=== PATIENT | male | born 1960 | race Caucasian/White ===

== ENCOUNTER 2018-08-18 19:48 | Inpatient (IN) | payer MEDICARE, MEDICAID ==
[~2018-08-18] VITALS: Ht 162.6 cm; Wt 85.0 kg
[~2018-08-18 19:48] MED LIST: ALEN70TA13 PO; AMLO10TA13 PO; ASPI81TA46 PO; ATOR10TA70 PO; BACL10TA2 PO; FLUT16SP26 INH; GLIM1TAB46 PO; HYDR12.5 PO; LEVO500T2 PO; LISI40TA4 PO; LORA10TA7 PO; METF-950 PO; PARO40TA4 PO; TAMS0.4C32 PO
[2018-08-18] MEDS ORDERED: normal saline 1000ml 1,000 ML IV ONE (20:31)
[2018-08-18] MEDS ORDERED: temazepam 15mg capsule PO PRN (21:00)
[2018-08-18 21:03] LABS: BASOPHILS % (AUTO) 0.2 % (0-1); EOSINOPHILS % (AUTO) 0 % (0-6); HEMATOCRIT 51.5 % (42.0-52.0); HEMOGLOBIN 17.2 g/dl (14.0-17.9); LYMPHOCYTES # (AUTO) 1.1 X10'3 (1.1-4.8); LYMPHOCYTES % (AUTO) 10.2 % (21-51); MEAN CORPUSCULAR HEMOGLOBIN 30.2 PG (27.0-31.0); MEAN CORPUSCULAR HGB CONC 33.3 % (33.0-36.5); MEAN CORPUSCULAR VOLUME 90.6 FL (78-98); MEAN PLATELET VOLUME 8.9 FL (7.4-10.4); MONOCYTES # (AUTO) 0.9 X10'3 (0-0.9); MONOCYTES % (AUTO) 8.1 % (2-12); NEUTROPHILS # (AUTO) 8.6 X10'3 (1.8-7.7); NEUTROPHILS % (AUTO) 81.5 % (42-75); PLATELET COUNT 301 X10'3 (140-440); RED BLOOD COUNT 5.68 X10'6 (4.70-6.10); RED CELL DISTRIBUTION WIDTH 14.2 % (11.5-14.5); WHITE BLOOD COUNT 10.6 X10'3 (4.5-11.0)
[2018-08-18 21:13] LABS: ALANINE AMINOTRANSFERASE 30 U/L (12-78); ALBUMIN 3.8 G/DL (3.4-5.0); ALBUMIN/GLOBULIN RATIO 0.8 (1.1-1.5); ALKALINE PHOSPHATASE 133 IU/L (46-116); ANION GAP 18 (8-16); ASPARTATE AMINO TRANSFERASE 36 U/L (10-37); BILIRUBIN,TOTAL 0.5 MG/DL (0.1-1.0); BLOOD UREA NITROGEN 66 MG/DL (7-18); BUN/CREATININE RATIO 29.5 (5.4-32.0); CALCIUM 8.6 MG/DL (8.5-10.1); CHLORIDE 99 MMOL/L (99-107); CREATININE 2.24 MG/DL (0.60-1.10); GLUCOSE 159 MG/DL (70-104); LIPASE 136 U/L (73-393); MAGNESIUM 1.9 MG/DL (1.5-2.4); POTASSIUM 3.6 MMOL/L (3.5-5.1); SODIUM 137 MMOL/L (135-145); TOTAL PROTEIN 8.7 G/DL (6.4-8.2); eGFR 30 ML/MIN
[2018-08-18 21:37] LABS: INR 1.2 INR; PROTHROMBIN TIME 12.7 SECONDS (9.0-12.0)
[2018-08-18 21:48] LABS: GLUCOSE, URINE NEGATIVE (Neg); KETONES,URINE TRACE mg/dl (Neg); LEUKOCYTE ESTERASE ,URINE NEGATIVE (Neg); NITRITES, URINE NEGATIVE (Neg); OCCULT BLOOD,URINE NEGATIVE (Neg); PROTEIN,URINE 100 mg/dl (Neg); UROBILINOGEN,URINE 0.2 E.U/dL (0.2-1.0)
[2018-08-18] MEDS ORDERED: normal saline 1000ML IV soln IVB ONE (21:50)
[2018-08-18 21:55] LABS: UA COLLECTION TYPE STRAIGHT CATH
[2018-08-18 21:56] LABS: CLARITY,URINE TURBID (Clear)
[2018-08-18 21:57] LABS: COLOR,URINE DARK YELLOW (Yellow)
[2018-08-18 21:58] LABS: BACTERIA,URINE FEW /HPF (Neg); RBC,URINE NONE SEEN /HPF (0-2); WBC,URINE NONE SEEN /HPF (0-4)
[2018-08-18 21:59] LABS: AMORPHOUS URATES 3+; MUCUS STRANDS NONE SEEN /LPF (Neg); SQUAMOUS EPITHELIAL CELL,UR MODERATE /LPF (FEW)
[2018-08-18] MEDS ORDERED: SERT25TA PO (22:24)
[2018-08-18] MEDS ORDERED: FEXO-124 PO (22:24)
[2018-08-18] MEDS ORDERED: CARSR60C PO (22:24)
[2018-08-18] MEDS ORDERED: ACET-2119 PO (22:24)
[2018-08-18] MEDS ORDERED: GEMF600T4 PO (22:24)
[2018-08-18] MEDS ORDERED: ESOM20CA PO (22:24)
[2018-08-18] MEDS ORDERED: SENN-161 PO (22:24)
[2018-08-18] MEDS ORDERED: CARB15DR91 EACH EAR (22:24)
[2018-08-18] MEDS ORDERED: PRAV40TA3 PO (22:24)
[2018-08-18] MEDS ORDERED: LORA1TAB PO (22:24)
[2018-08-18] MEDS ORDERED: glucagon, human recombinant 1mg kit SUBCUT PRN ×2 (22:50→22:55)
[2018-08-18] MEDS ORDERED: dextrose 50%-water 50ml dispensing syringe IV PRN ×4 (22:50→22:55)
[2018-08-18] MEDS ORDERED: dextrose ORAL solution 15 GM/59 ML bottle PO PRN ×4 (22:50→22:55)
[2018-08-18] MEDS ORDERED: MESSAGE TO PHARMACY PO ONE ×2 (22:50→22:55)
[2018-08-18] MEDS ORDERED: insulin Lispro (HumaLOG) vial - multi-dose SQ SCH ×2 (22:50→22:55)
[2018-08-18] MEDS ORDERED: LORazepam 1 MG tablet PO PRN (22:55)
[2018-08-18] MEDS ORDERED: diphenhydrAMINE 25mg capsule PO PRN (22:55)
[2018-08-18] MEDS ORDERED: acetaminophen 650mg rectal suppository RC PRN (22:55)
[2018-08-18] MEDS ORDERED: morphine 2 MG/ML inj. syringe IV PRN ×2 (22:55)
[2018-08-18] MEDS ORDERED: diphenhydrAMINE 50 mg/ml inj IV PRN (22:55)
[2018-08-18] MEDS ORDERED: HYDROcodone/acetaminophen 5mg/325mg tablet PO PRN (22:55)
[2018-08-18] MEDS ORDERED: bisacodyl 10mg suppository rectal RC PRN (22:55)
[2018-08-18] MEDS ORDERED: HYDROcodone/acetaminophen 10/325mg tab PO PRN (22:55)
[2018-08-18] MEDS ORDERED: acetaminophen 325mg tablet PO PRN ×2 (22:55)
[2018-08-18] MEDS ORDERED: mag hydrox/Alum hydrox/simeth 30ml oral suspension PO PRN (22:55)
[2018-08-18] MEDS ORDERED: ondansetron/PF 4mg/2ml inj IV PRN (22:55)
[2018-08-18] MEDS ORDERED: baclofen 10mg tablet PO PRN (22:55)
[2018-08-18] MEDS ORDERED: magnesium hydroxide 30ml (MOM) UD suspension PO PRN (22:55)
[2018-08-18 23:10] LABS: HEMOGLOBIN A1C 5.9 % (4.5-6.2)
[2018-08-18 23:22] LABS: PHOSPHORUS 4.2 MG/DL (2.3-4.5); TROPONIN I < 0.04 NG/ML (0.0-0.05)
[2018-08-18 23:32] LABS: D-DIMER 0.51 MG/L FEU (0-0.50)
[2018-08-18 23:35] VITALS: BP 114/80
[2018-08-19] MEDS: normal saline 1000ml 1,000 ML IV SCH ×3 (05:23→18:54)
[2018-08-19 05:43] LABS: BASOPHILS % (AUTO) 0.1 % (0-1); EOSINOPHILS % (AUTO) 0.7 % (0-6); HEMATOCRIT 40.7 % (42.0-52.0); HEMOGLOBIN 13.9 g/dl (14.0-17.9); LYMPHOCYTES # (AUTO) 1.6 X10'3 (1.1-4.8); LYMPHOCYTES % (AUTO) 22.1 % (21-51); MEAN CORPUSCULAR HEMOGLOBIN 30.6 PG (27.0-31.0); MEAN CORPUSCULAR HGB CONC 34.1 % (33.0-36.5); MEAN CORPUSCULAR VOLUME 89.8 FL (78-98); MEAN PLATELET VOLUME 8.4 FL (7.4-10.4); MONOCYTES # (AUTO) 0.9 X10'3 (0-0.9); NEUTROPHILS # (AUTO) 4.8 X10'3 (1.8-7.7); NEUTROPHILS % (AUTO) 65.1 % (42-75); PLATELET COUNT 213 X10'3 (140-440); RED BLOOD COUNT 4.53 X10'6 (4.70-6.10); RED CELL DISTRIBUTION WIDTH 13.9 % (11.5-14.5); WHITE BLOOD COUNT 7.4 X10'3 (4.5-11.0)
[2018-08-19 06:00] VITALS: BP 121/75
[2018-08-19 06:15] LABS: ALANINE AMINOTRANSFERASE 24 U/L (12-78); ALBUMIN 2.9 G/DL (3.4-5.0); ALBUMIN/GLOBULIN RATIO 0.8 (1.1-1.5); ALKALINE PHOSPHATASE 96 IU/L (46-116); ANION GAP 14 (8-16); ASPARTATE AMINO TRANSFERASE 32 U/L (10-37); BILIRUBIN,TOTAL 0.4 MG/DL (0.1-1.0); BLOOD UREA NITROGEN 51 MG/DL (7-18); BUN/CREATININE RATIO 31.7 (5.4-32.0); CALCIUM 7.2 MG/DL (8.5-10.1); CHLORIDE 108 MMOL/L (99-107); CREATININE 1.61 MG/DL (0.60-1.10); GLUCOSE 119 MG/DL (70-104); POTASSIUM 3.3 MMOL/L (3.5-5.1); SODIUM 142 MMOL/L (135-145); TOTAL CARBON DIOXIDE 20.4 MMOL/L (24-32); TOTAL PROTEIN 6.7 G/DL (6.4-8.2); eGFR 44 ML/MIN
[2018-08-19] MEDS ORDERED: potassium Cl 20 mEq SR tablet PO PRN (06:45)
[2018-08-19] MEDS ORDERED: potassium Cl 40MEQ/NS 500ml 500 ML IV PRN ×2 (07:40)
[2018-08-19] MEDS: loratadine 10mg tablet PO SCH (07:58)
[2018-08-19] MEDS: sertraline 50mg tablet PO SCH (07:59)
[2018-08-19] MEDS: pantoprazole 40mg Tablet.DR PO SCH (07:59)
[2018-08-19] MEDS: gemfibrozil 600mg tablet PO SCH ×2 (08:00→20:23)
[2018-08-19] MEDS: diltiazem 30mg tablet PO SCH ×4 (08:00→21:00)
[2018-08-19] MEDS ORDERED: CefTRIAXone/D5W-Rocephin 1gm 50 ML IV SCH (08:00)
[2018-08-19] MEDS: docusate sod 100mg capsule PO SCH ×2 (08:00→20:00)
[2018-08-19 11:00] VITALS: BP 111/78
[2018-08-19] MEDS: potassium Cl 20 mEq SR tablet PO PRN ×3 (11:10→20:23)
[2018-08-19 15:17] LABS: OCCULT BLOOD STOOL POSITIVE (Neg)
[2018-08-19 15:37] LABS: C DIFF ANTIGEN NEGATIVE (NEGATIVE); C DIFF SPECIMEN=DIARRHEA? ACCEPTABLE; C DIFFICILE TOXINS A&B NEGATIVE (Neg)
[2018-08-19 16:20] VITALS: BP 139/86
[2018-08-19 18:00] VITALS: BP 99/58
[2018-08-19] MEDS ORDERED: pravastatin 40mg tablet PO SCH (21:00)
[2018-08-19 22:00] VITALS: BP 133/83
[2018-08-20 02:00] VITALS: BP 132/82
[2018-08-20] MEDS: normal saline 1000ml 1,000 ML IV SCH ×2 (04:54→14:25)
[2018-08-20 05:30] LABS: BASOPHILS % (AUTO) 0.3 % (0-1); EOSINOPHILS # (AUTO) 0.1 X10'3 (0-0.9); EOSINOPHILS % (AUTO) 1.9 % (0-6); HEMATOCRIT 40.2 % (42.0-52.0); HEMOGLOBIN 13.6 g/dl (14.0-17.9); LYMPHOCYTES # (AUTO) 1.9 X10'3 (1.1-4.8); LYMPHOCYTES % (AUTO) 27.2 % (21-51); MEAN CORPUSCULAR HEMOGLOBIN 30.6 PG (27.0-31.0); MEAN CORPUSCULAR HGB CONC 33.8 % (33.0-36.5); MEAN CORPUSCULAR VOLUME 90.5 FL (78-98); MEAN PLATELET VOLUME 8.9 FL (7.4-10.4); MONOCYTES # (AUTO) 0.7 X10'3 (0-0.9); MONOCYTES % (AUTO) 10.4 % (2-12); NEUTROPHILS # (AUTO) 4.2 X10'3 (1.8-7.7); NEUTROPHILS % (AUTO) 60.2 % (42-75); PLATELET COUNT 213 X10'3 (140-440); RED BLOOD COUNT 4.44 X10'6 (4.70-6.10); RED CELL DISTRIBUTION WIDTH 14.1 % (11.5-14.5)
[2018-08-20 06:00] VITALS: BP 142/87
[2018-08-20 06:09] LABS: ALANINE AMINOTRANSFERASE 23 U/L (12-78); ALBUMIN 3.1 G/DL (3.4-5.0); ALBUMIN/GLOBULIN RATIO 0.8 (1.1-1.5); ALKALINE PHOSPHATASE 97 IU/L (46-116); ANION GAP 9 (8-16); ASPARTATE AMINO TRANSFERASE 32 U/L (10-37); BILIRUBIN,TOTAL 0.4 MG/DL (0.1-1.0); BLOOD UREA NITROGEN 21 MG/DL (7-18); BUN/CREATININE RATIO 19.3 (5.4-32.0); CALCIUM 8.3 MG/DL (8.5-10.1); CHLORIDE 109 MMOL/L (99-107); CREATININE 1.09 MG/DL (0.60-1.10); GLUCOSE 101 MG/DL (70-104); POTASSIUM 3.8 MMOL/L (3.5-5.1); SODIUM 141 MMOL/L (135-145); TOTAL CARBON DIOXIDE 22.7 MMOL/L (24-32); eGFR 69 ML/MIN
[2018-08-20] MEDS: docusate sod 100mg capsule PO SCH (08:00)
[2018-08-20] MEDS: pantoprazole 40mg Tablet.DR PO SCH (08:25)
[2018-08-20] MEDS: loratadine 10mg tablet PO SCH (08:25)
[2018-08-20] MEDS: diltiazem 30mg tablet PO SCH ×2 (08:26→13:00)
[2018-08-20] MEDS: sertraline 50mg tablet PO SCH (08:27)
[2018-08-20] MEDS: gemfibrozil 600mg tablet PO SCH (08:27)
[2018-08-20 11:00] VITALS: BP 143/90
[2018-08-20 15:00] VITALS: BP 147/96
== END 2018-08-20 18:00 | disposition home or self-care (01) | DRG 388 ==
LOC: ER 20:02 → ED HOLD 22:54 → PCU 3S 23:36
PROVIDERS: ADMIT Family Medicine; ATTEND Internal Medicine
PROC: 0D9670Z Drainage of Stomach with Drainage Device, Via Natural or Artificial Opening (ICD-10-PCS; principal; 2018-08-19)
DX: K56.609 Unspecified intestinal obstruction, unspecified as to partial versus complete obstruction (principal); N17.0 Acute kidney failure with tubular necrosis; G80.9 Cerebral palsy, unspecified; E11.9 Type 2 diabetes mellitus without complications; E78.00 Pure hypercholesterolemia, unspecified; E78.5 Hyperlipidemia, unspecified; E86.0 Dehydration; F32.9 Major depressive disorder, single episode, unspecified; N28.1 Cyst of kidney, acquired; F41.9 Anxiety disorder, unspecified; K21.9 Gastro-esophageal reflux disease without esophagitis; M19.90 Unspecified osteoarthritis, unspecified site; E86.1 Hypovolemia; E87.6 Hypokalemia; I10 Essential (primary) hypertension; I48.91 Unspecified atrial fibrillation; N28.89 Other specified disorders of kidney and ureter; Z90.5 Acquired absence of kidney; Z99.3 Dependence on wheelchair; Z79.899 Other long term (current) drug therapy; Z79.82 Long term (current) use of aspirin
CPT/HCPCS: 36415; 71045; 71250; 74176; 74181; 80053; 81001; 82272; 82948; 83036; 83605; 83690; 83735; 83880; 84100; 84443; 84484; 85025; 85379; 85610; 87040; 87045; 87046; 87070; 87324; 87449; 89055; 96360; 99285; J0696; J3480; J7030

== ENCOUNTER 2019-03-09 16:41 | Emergency (ER) | payer MEDICARE, MEDICAID ==
[~2019-03-09] VITALS: Ht 165.1 cm; Wt 70.9 kg
[~2019-03-09 16:41] MED LIST changes: +ACET-2119 PO; -ALEN70TA13 PO; -AMLO10TA13 PO; -ATOR10TA70 PO; +CARB15DR91 EACH EAR; +CARSR60C PO; +ESOM20CA PO; +FEXO-124 PO; -FLUT16SP26 INH; +GEMF600T89 PO; -GLIM1TAB46 PO; -HYDR12.5 PO; -LEVO500T2 PO; -LORA10TA7 PO; +LORA1TAB PO; -METF-950 PO; -PARO40TA4 PO; +PRAV40TA3 PO; +SENN-162 PO; +SERT25TA PO; -TAMS0.4C32 PO
[2019-03-09 17:32] LABS: BASOPHILS % (AUTO) 0.4 % (0-1); EOSINOPHILS # (AUTO) 0.2 X10'3 (0-0.9); EOSINOPHILS % (AUTO) 2.2 % (0-6); HEMATOCRIT 43.1 % (42.0-52.0); HEMOGLOBIN 14.6 g/dl (14.0-17.9); LYMPHOCYTES # (AUTO) 2.1 X10'3 (1.1-4.8); MEAN CORPUSCULAR HEMOGLOBIN 30.4 PG (27.0-31.0); MEAN CORPUSCULAR HGB CONC 33.9 g/dL (33.0-36.5); MEAN CORPUSCULAR VOLUME 89.7 FL (78-98); MEAN PLATELET VOLUME 9.3 FL (7.4-10.4); MONOCYTES # (AUTO) 0.5 X10'3 (0-0.9); MONOCYTES % (AUTO) 6.2 % (2-12); NEUTROPHILS # (AUTO) 4.7 X10'3 (1.8-7.7); NEUTROPHILS % (AUTO) 63.2 % (42-75); PLATELET COUNT 270 X10'3 (140-440); RED BLOOD COUNT 4.81 X10'6 (4.70-6.10); WHITE BLOOD COUNT 7.5 X10'3 (4.5-11.0)
[2019-03-09 17:54] LABS: ALANINE AMINOTRANSFERASE 16 U/L (12-78); ALBUMIN 3.7 G/DL (3.4-5.0); ALBUMIN/GLOBULIN RATIO 0.7 (1.1-1.5); ALKALINE PHOSPHATASE 167 IU/L (46-116); ANION GAP 9 (8-16); ASPARTATE AMINO TRANSFERASE 8 U/L (10-37); BILIRUBIN,TOTAL 0.5 MG/DL (0.1-1.0); BLOOD UREA NITROGEN 42 MG/DL (7-18); BUN/CREATININE RATIO 31.1 (5.4-32.0); CHLORIDE 97 MMOL/L (99-107); CREATININE 1.35 MG/DL (0.60-1.10); POTASSIUM 4.3 MMOL/L (3.5-5.1); SODIUM 132 MMOL/L (135-145); TOTAL CARBON DIOXIDE 26.2 MMOL/L (24-32); TOTAL PROTEIN 8.7 G/DL (6.4-8.2); eGFR 54 ML/MIN
[2019-03-09 18:06] LABS: GLUCOSE 628 MG/DL (70-104)
--- NOTE | 2019-03-09 18:06 | NUR ---
GLUCOSE OF [address] INFORMED YANEZ, PA
[2019-03-09] MEDS ORDERED: insulin regular, human 10 units/0.1 ml syringe SQ ONE (18:20)
[2019-03-09] MEDS ORDERED: normal saline 1000ml 1,000 ML IV ONE (18:20)
[2019-03-09 18:30] LABS: CLARITY,URINE CLEAR (Clear); COLOR,URINE YELLOW (Yellow); GLUCOSE, URINE >=1000 mg/dl (Neg); KETONES,URINE TRACE mg/dl (Neg); LEUKOCYTE ESTERASE ,URINE NEGATIVE (Neg); NITRITES, URINE NEGATIVE (Neg); OCCULT BLOOD,URINE TRACE-INTACT (Neg); PROTEIN,URINE TRACE mg/dl (Neg); UROBILINOGEN,URINE 0.2 E.U/dL (0.2-1.0)
[2019-03-09 18:32] LABS: UA COLLECTION TYPE CLN CATCH MIDSTREAM
[2019-03-09 18:49] LABS: BACTERIA,URINE FEW /HPF (Neg); RBC,URINE 0-2 /HPF (0-2); SQUAMOUS EPITHELIAL CELL,UR FEW /LPF (FEW); WBC,URINE 0-4 /HPF (0-4)
[2019-03-09] MEDS ORDERED: METF500T PO (20:18)
[2019-03-09 20:34] VITALS: BP 131/81
== END 2019-03-09 20:39 | disposition home or self-care (01) ==
LOC: ER 16:42
DX: E11.65 Type 2 diabetes mellitus with hyperglycemia (principal); E78.00 Pure hypercholesterolemia, unspecified; I10 Essential (primary) hypertension; M19.90 Unspecified osteoarthritis, unspecified site; Z79.82 Long term (current) use of aspirin; Z79.84 Long term (current) use of oral hypoglycemic drugs; Z79.899 Other long term (current) drug therapy
CPT/HCPCS: 36415; 80053; 81001; 82948; 85025; 96372; 99283; J1815; J7030

== ENCOUNTER 2022-11-23 23:24 | Emergency (ER) | payer MEDICARE, MEDICAID ==
[~2022-11-23] VITALS: Ht 152.4 cm; Wt 65.0 kg
[~2022-11-23 23:24] MED LIST changes: +ASPI81TA44 PO; -ASPI81TA46 PO; -FEXO-124 PO; +FEXO-271 PO; +LISI40TA13 PO; -LISI40TA4 PO; -SENN-162 PO; +SENN-263 PO
[2022-11-24 00:23] LABS: BASOPHILS # (AUTO) 0.1 X10'3 (0-0.2); BASOPHILS % (AUTO) 0.4 % (0-1); EOSINOPHILS # (AUTO) 0.4 X10'3 (0-0.9); EOSINOPHILS % (AUTO) 3.8 % (0-6); HEMATOCRIT 37.1 % (42.0-52.0); HEMOGLOBIN 12.2 g/dl (14.0-17.9); LYMPHOCYTES # (AUTO) 1.8 X10'3 (1.1-4.8); LYMPHOCYTES % (AUTO) 14.7 % (21-51); MEAN CORPUSCULAR HEMOGLOBIN 28.1 PG (27.0-31.0); MEAN CORPUSCULAR HGB CONC 32.9 g/dL (33.0-36.5); MEAN CORPUSCULAR VOLUME 85.4 FL (78-98); MEAN PLATELET VOLUME 8.3 FL (7.4-10.4); MONOCYTES # (AUTO) 0.9 X10'3 (0-0.9); MONOCYTES % (AUTO) 7.7 % (2-12); NEUTROPHILS # (AUTO) 8.8 X10'3 (1.8-7.7); NEUTROPHILS % (AUTO) 73.4 % (42-75); PLATELET COUNT 303 X10'3 (140-440); RED BLOOD COUNT 4.34 X10'6 (4.70-6.10); RED CELL DISTRIBUTION WIDTH 16.2 % (11.5-14.5); WHITE BLOOD COUNT 11.9 X10'3 (4.5-11.0)
[2022-11-24] MEDS ORDERED: mag hydrox/Alum hydrox/simeth 30ml oral suspension PO ONE ×2 (00:25→04:05)
[2022-11-24] MEDS ORDERED: LIDOcaine Viscous 15ml cup MM ONE ×2 (00:25→04:05)
[2022-11-24] MEDS ORDERED: acetaminophen 325mg tablet PO ONE (00:25)
[2022-11-24 00:31] LABS: ALANINE AMINOTRANSFERASE 20 U/L (12-78); ALBUMIN 3.3 G/DL (3.4-5.0); ALBUMIN/GLOBULIN RATIO 0.8 (1.1-1.5); ALKALINE PHOSPHATASE 106 IU/L (46-116); ASPARTATE AMINO TRANSFERASE 11 U/L (10-37); BILIRUBIN,TOTAL 0.3 MG/DL (0.1-1.0); BLOOD UREA NITROGEN 30 MG/DL (7-18); BUN/CREATININE RATIO 29.7 (5.4-32.0); CALCIUM 8.9 MG/DL (8.5-10.1); CREATININE 1.01 MG/DL (0.60-1.10); GLUCOSE 245 MG/DL (70-104); TOTAL CARBON DIOXIDE 23.5 MMOL/L (24-32); TOTAL PROTEIN 7.3 G/DL (6.4-8.2); eGFR 74 ML/MIN
[2022-11-24 00:35] LABS: ANION GAP 10 (8-16); CHLORIDE 101 MMOL/L (99-107); POTASSIUM 3.8 MMOL/L (3.5-5.1); SODIUM 134 MMOL/L (135-145)
[2022-11-24 00:52] LABS: D-DIMER < 0.19 MG/L FEU (0-0.50)
--- NOTE | 2022-11-24 04:39 | NUR ---
Pt. inc. large amt formed bm, cleansed and diaper changed.
[2022-11-24 04:55] VITALS: BP 125/75
== END 2022-11-24 08:28 | disposition home or self-care (01) ==
LOC: ER 23:25
DX: R07.89 Other chest pain (principal); K21.9 Gastro-esophageal reflux disease without esophagitis; E78.00 Pure hypercholesterolemia, unspecified; I10 Essential (primary) hypertension; M19.90 Unspecified osteoarthritis, unspecified site; F41.9 Anxiety disorder, unspecified; F32.A Depression, unspecified; Z87.442 Personal history of urinary calculi; Z98.890 Other specified postprocedural states; Z79.82 Long term (current) use of aspirin; Z79.899 Other long term (current) drug therapy
CPT/HCPCS: 36415; 71045; 80053; 84484; 85025; 85379; 93005; 99285